=== PATIENT | male | born 1965 | race Caucasian/White ===

== ENCOUNTER 2016-08-24 17:05 | Emergency (ER) | payer OTHER ==
[~2016-08-24] VITALS: Ht 167.6 cm; Wt 72.0 kg
[~2016-08-24 17:05] MED LIST: AMOX250C4 PO; GUAI50GR PO; NO MEDS; VICOT PO
[2016-08-24] MEDS ORDERED: IBUPROFEN 600 MG TABLET PO ONE (18:00)
[2016-08-24] MEDS ORDERED: TETRACAINE HCL 0.5% 2 ML OPHTHALMIC SOLUTION OS ONE (19:00)
[2016-08-24 19:46] VITALS: BP 118/70
== END 2016-08-24 20:16 | disposition home or self-care (01) ==
LOC: EMS 17:06
DX: T15.92XA Foreign body on external eye, part unspecified, left eye, initial encounter (principal); H20.9 Unspecified iridocyclitis; H10.9 Unspecified conjunctivitis; X58.XXXA Exposure to other specified factors, initial encounter; Y93.89 Activity, other specified; Y92.89 Other specified places as the place of occurrence of the external cause; Y99.8 Other external cause status
CPT/HCPCS: 70486; 99284